=== PATIENT | female | born 1960 | race African-American/Black ===

== ENCOUNTER 2022-04-10 11:12 | Emergency (ER) | payer BC ==
[~2022-04-10] VITALS: Ht 175.3 cm; Wt 100.0 kg
[2022-04-10 11:37] VITALS: BP 127/57
[2022-04-10] MEDS ORDERED: NIRM1TAB PO (12:14)
== END 2022-04-10 12:27 | disposition home or self-care (01) ==
LOC: ER 11:12
DX: U07.1 COVID-19 (principal)
CPT/HCPCS: 99281